=== PATIENT | male | born 1990 | race African-American/Black ===

== ENCOUNTER 2018-04-30 13:56 | Emergency (ER) | payer SELFPAY ==
--- NOTE | 2018-04-30 15:19 | EDPHYS ---
Physician Documentation [facility] Name: Blas Leger Jr Age: 28 yrs Sex: Male : 1990 Arrival Date: 04/30/2018 Time: 13:58 Bed Treatment Private MD: None, None ED Physician Kris Flood HPI: 04/30 15:16 This 28 yrs old Black Male presents to ER via Ambulatory with complaints of Bee Sting. jr8 15:16 by a wasp. Onset: The symptoms/episode began/occurred acutely, today. Associated signs jr8 and symptoms: Pertinent positives: swelling at site, tenderness. Severity of symptoms: At their worst the symptoms were mild, in the emergency department the symptoms are unchanged. The patient has not experienced similar symptoms in the past. The patient has not recently seen a physician. Historical: - Allergies: 14:13 Wasps; aj - Home Meds: 14:13 None [Active]; aj - PMHx: 14:13 None; aj - PSHx: 14:13 None; aj - Immunization history:: Last tetanus immunization: unknown. - Social history:: Smoking status: Patient/guardian denies using tobacco. - Ebola Screening: : Patient negative for fever greater than or equal to 101.5 degrees Fahrenheit, and additional compatible Ebola Virus Disease symptoms Patient denies exposure to infectious person Patient denies travel to an Ebola-affected area in the 21 days before illness onset No symptoms or risks identified at this time. ROS: 15:16 Eyes: Negative for injury, pain, redness, and discharge, ENT: Negative for injury, jr8 pain, and discharge, Neck: Negative for injury, pain, and swelling, Cardiovascular: Negative for chest pain, palpitations, and edema, Respiratory: Negative for shortness of breath, cough, wheezing, and pleuritic chest pain, Abdomen/GI: Negative for abdominal pain, nausea, vomiting, diarrhea, and constipation, Back: Negative for injury and pain, MS/Extremity: Negative for injury and deformity, Neuro: Negative for headache, weakness, numbness, tingling, and seizure. 15:16 Skin: Positive for swelling, of the right hand. Exam: 15:16 Head/Face: Normocephalic, atraumatic. Eyes: Pupils equal round and reactive to light, jr8 extra-ocular motions intact. Lids and lashes normal. Conjunctiva and sclera are non-icteric and not injected. Cornea within normal limits. Periorbital areas with no swelling, redness, or edema. ENT: Nares patent. No nasal discharge, no septal abnormalities noted. Tympanic membranes are normal and external auditory canals are clear. Oropharynx with no redness, swelling, or masses, exudates, or evidence of obstruction, uvula midline. Mucous membranes moist. Neck: Trachea midline, no thyromegaly or masses palpated, and no cervical lymphadenopathy. Supple, full range of motion without nuchal rigidity, or vertebral point tenderness. No Meningismus. Cardiovascular: Regular rate and rhythm with a normal S1 and S2. No gallops, murmurs, or rubs. Normal PMI, no JVD. No pulse deficits. Respiratory: Lungs have equal breath sounds bilaterally, clear to auscultation and percussion. No rales, rhonchi or wheezes noted. No increased work of breathing, no retractions or nasal flaring. Abdomen/GI: Soft, non-tender, with normal bowel sounds. No distension or tympany. No guarding or rebound. No evidence of tenderness throughout. Back: No spinal tenderness. No costovertebral tenderness. Full range of motion. MS/ Extremity: Pulses equal, no cyanosis. Neurovascular intact. Full, normal range of motion. Neuro: Awake and alert, GCS 15, oriented to person, place, time, and situation. Cranial nerves II-XII grossly intact. Motor strength 5/5 in all extremities. Sensory grossly intact. Cerebellar exam normal. Normal gait. 15:16 Skin: Localized swelling to right hand. Within center has stinger trell. No other diffuse urticaria or other lesions noted . Vital Signs: 14:13 BP 105 / 75; Pulse 84; Resp 18; Temp 98.8; Pulse Ox 100% on R/A; Weight 95.25 kg; aj Height 6 ft. 2 in. (187.96 cm); 14:13 Body Mass Index 26.96 (95.25 kg, 187.96 cm) aj MDM: 14:33 Patient medically screened. jr8 15:16 Data reviewed: vital signs, nurses notes, and as a result, I will discharge patient. jr8 Data interpreted: Pulse oximetry: on room air is 100 %. Interpretation: normal. Counseling: I had a detailed discussion with the patient and/or guardian regarding: the historical points, exam findings, and any diagnostic results supporting the discharge/admit diagnosis, the need for outpatient follow up, a family practitioner, to return to the emergency department if symptoms worsen or persist or if there are any questions or concerns that arise at home. Administered Medications: No medications were administered Disposition: 17:51 Co-signature as Attending Physician, Kris Flood MD. Disposition: 04/30/18 15:18 Discharged to Home. Impression: Toxic effect of venom of wasps, accidental (unintentional). - Condition is Stable. - Discharge Instructions: Bee, Wasp, or Hornet Sting, Adult. - Medication Reconciliation Form, Thank You Letter, Antibiotic Education, Prescription Opioid Use form. - Follow up: Private Physician; When: As needed; Reason: Recheck today's complaints, Continuance of care, Re-evaluation by your physician. - Problem is new. - Symptoms have improved. Signatures: Mirlande Garnett RN RN aj Calderon, Audri, RN RN aa5 Jon Reed PA PA jr8 Kris Flood MD MD Corrections: (The following items were deleted from the chart) 15:32 15:18 04/30/2018 15:18 Discharged to Home. Impression: Toxic effect of venom of wasps, aa5 accidental (unintentional). Condition is Stable. Forms are Medication Reconciliation Form, Thank You Letter, Antibiotic Education, Prescription Opioid Use. Follow up: Private Physician; When: As needed; Reason: Recheck today's complaints, Continuance of care, Re-evaluation by your physician. Problem is new. Symptoms have improved. jr8
--- NOTE | 2018-04-30 15:19 | ER ---
Nurse's Notes [facility] Name: Blas Leger Jr Age: 28 yrs Sex: Male : 1990 Arrival Date: 04/30/2018 Time: 13:58 Bed Treatment Private MD: None, None Diagnosis: Toxic effect of venom of wasps, accidental (unintentional) Presentation: 04/30 14:12 Presenting complaint: Patient states: Stung by wasp on right hand 30 min [employer]. Airway is aj patent with no inflammation to mouth or tongue, no difficulty speaking. Transition of care: patient was not received from another setting of care. Onset: The symptoms/episode began/occurred acutely. Anaphylaxis evaluation, no signs or symptoms of anaphylaxis were noted. Onset of symptoms was April 30, 2018. Risk Assessment: Do you want to hurt yourself or someone else? Patient reports no desire to harm self or others. Initial Sepsis Screen: Does the patient meet any 2 criteria? No. Patient's initial sepsis screen is negative. Does the patient have a suspected source of infection? No. Patient's initial sepsis screen is negative. Care prior to arrival: None. 14:12 Method Of Arrival: Ambulatory 14:12 Acuity: AILYN 4 aj Triage Assessment: 14:13 General: Appears in no apparent distress. comfortable, Behavior is calm, cooperative, aj appropriate for age. Pain: Complains of pain in right hand. Neuro: Level of Consciousness is awake, alert, obeys commands, Oriented to person, place, time, situation, Appropriate for age. Respiratory: Airway is patent Respiratory effort is even, unlabored, Respiratory pattern is regular, symmetrical. Derm: Skin is intact, is healthy with good turgor, Skin is pink, warm \T\ dry. normal. Injury Description: Bite sustained to right hand caused by a wasp, is from insect was sustained 30-60 minutes ago. Historical: - Allergies: 14:13 Wasps; aj - Home Meds: 14:13 None [Active]; aj - PMHx: 14:13 None; aj - PSHx: 14:13 None; aj - Immunization history:: Last tetanus immunization: unknown. - Social history:: Smoking status: Patient/guardian denies using tobacco. - Ebola Screening: : Patient negative for fever greater than or equal to 101.5 degrees Fahrenheit, and additional compatible Ebola Virus Disease symptoms Patient denies exposure to infectious person Patient denies travel to an Ebola-affected area in the 21 days before illness onset No symptoms or risks identified at this time. Screenin:48 Abuse screen: Denies threats or abuse. Nutritional screening: No deficits noted. aa5 Tuberculosis screening: No symptoms or risk factors identified. Fall Risk None identified. Assessment: 14:47 General: Appears comfortable, Behavior is calm, cooperative. Pain: Complains of pain in aa5 right hand Pain does not radiate. Pain currently is 8 out of 10 on a pain scale. Quality of pain is described as stinging, Is continuous. Neuro: Level of Consciousness is awake, alert, obeys commands, Oriented to person, place, time, situation. Cardiovascular: Heart tones S1 S2 present Rhythm is regular. Respiratory: Airway is patent Respiratory effort is even, unlabored, Respiratory pattern is regular, symmetrical. GI: No signs and/or symptoms were reported involving the gastrointestinal system. : No signs and/or symptoms were reported regarding the genitourinary system. EENT: No signs and/or symptoms were reported regarding the EENT system. Derm: Skin is dry, Skin is normal, Skin temperature is warm Swelling and mild redness noted to dorsum of right hand. Musculoskeletal: Range of motion: intact in all extremities. 14:47 Respiratory: Breath sounds are clear bilaterally. aa5 15:30 Neuro: Level of Consciousness is awake, alert, obeys commands, Oriented to person, aa5 place, time, situation. Respiratory: Airway is patent Respiratory effort is even, unlabored, Respiratory pattern is regular, symmetrical. Derm: Skin is dry, Skin is normal, Skin temperature is warm. Vital Signs: 14:13 BP 105 / 75; Pulse 84; Resp 18; Temp 98.8; Pulse Ox 100% on R/A; Weight 95.25 kg; aj Height 6 ft. 2 in. (187.96 cm); 14:13 Body Mass Index 26.96 (95.25 kg, 187.96 cm) aj ED Course: 13:58 Patient arrived in ED. mr 13:59 None, None is Private Physician. mr 14:13 Triage completed. aj 14:13 Arm band placed on left wrist. Patient placed in waiting room. Ice pack applied. aj 14:33 Fanny Ríos, RN is Primary Nurse. aa5 14:33 [facility]. jr8 14:33 Kris Flood MD is Attending Physician. jr8 14:48 Patient has correct armband on for positive identification. Bed in low position. Call aa5 light in reach. Side rails up X 1. 15:30 Patient did not have IV access during this emergency room visit. aa5 15:30 No provider procedures requiring assistance completed. aa5 Administered Medications: No medications were administered Outcome: 15:18 Discharge ordered by MD. jr8 15:30 Discharged to home ambulatory, with significant other. aa5 15:30 Condition: stable 15:30 Discharge instructions given to patient, Instructed on discharge instructions, follow up and referral plans. Demonstrated understanding of instructions, follow-up care. 15:32 Patient left the ED. aa5 Signatures: Mirlande Garnett, RN RN Sandrita Hutton Audri RN RN aa5 Jon Reed PA PA jr Corrections: (The following items were deleted from the chart) 15:41 14:47 Derm: Skin is pink, warm \T\ dry. Swelling and mild redness noted to dorsum of aa5 right hand aa5
== END 2018-04-30 15:32 | disposition home or self-care (01) ==
LOC: ER 13:56
DX: T63.461A Toxic effect of venom of wasps, accidental (unintentional), initial encounter (principal); Y92.9 Unspecified place or not applicable
CPT/HCPCS: 99281

== ENCOUNTER 2023-02-06 22:09 | Emergency (ER) | payer OTHER, SELFPAY ==
--- OUTSIDE RECORDS SUMMARY | 2023-02-06 22:12 | XMS REPORT | Continuity of Care Document ---
:1990 Author Organization [facility] t Address [address] [place] [address] [address] [place] [address] Care Team Providers Name Role Phone Pcp, Patient Does Not Have A Primary Care Physician [id number] TRACEE MAHONEY Attending Clinician Unavailable Tracee Mahoney DO Attending Clinician NESHA GEORGE Attending Clinician Unavailable Nesha Fernandez Attending Clinician Doctor Unassigned, [place] Attending Clinician Unavailable CORINA CARDENAS Attending Clinician Unavailable Corina Cardenas DO Attending Clinician MD FREDIS Attending Clinician Unavailable Payers Payer Name Policy Type Policy Number Effective Date Expiration Date S [employer] COMM[employer]CIAL [id number] 2021 NON-CONTRACT 00:00:00 GENERIC Problems Condition Condition Condition Status Onset Resolution Last Treating Co mments Source Name Details Category Date Date Treatment Clinician Date No known No known Disease Unive rs active active ity of problems problems [facility] Right-side Right-side Problem Active U T d chest d chest Physici wall pain wall pain ans Allergies, Adverse Reactions, Alerts Allergy Allergy Status Severity Reaction(s) Onset Inactive Treating Comm ents Source Name Type Date Date Clinician NO KNOWN Drug Active Univers ALLERGIE Class ity of S [facility] Social History Social Habit Start Date Stop Date Quantity Comments Source Exposure to Not sure [facility] SARS-CoV-2 (event) Medica l Branch Sex Assigned At [birth year] [facility] [place] 00:[facility]:00 00:00:00 Medical Branch Smoking Status Start Date Stop Date Source Tobacco smoking consumption [facility] Medical unknown Branch Occasional tobacco smoker [facility] (finding) Medications Ordered Filled Start Stop Current Ordering Indication Dosage Frequency Signature Comments Components Source Medication Medication Date Date Medication? Clinician (SIG) Name Name ibuprofen 2022- No 600mg 600 mg, Uni vers (IBU) 12-13 Oral, ity of tablet 600 20:30: 20:37 ONCE, 1 [place] mg 00 :00 dose, On Medical [place] 12/13/22 at 1530, RANJAN diazePAM 2022- No 5mg 5 mg, Univers (VALIUM) 12-13 Oral, ity of tablet 5 mg 20:30: 20:37 [place] 1 [place], On Medical [place] 12/13/22 at 1530, RANJAN dexamethaso 2022- No 10mg 10 mg, Uni vers ne sod phos 12-13 Oral, ity of PF 20:30: 20:37 ONCE, 1 [place] injection 00 :00 dose, On Medica l 10 mg [place] Branch 12/13/22 at 1530, 1 mL cyclobenzap Yes [id number] 10mg Take 1 Univers rine 10 mg 6-11 tablet by ity of tablet 00:00: mouth 3 [place] 00 (three) Medical times Branch daily as needed for Muscle Spasms. sulfamethox 2021-07 Yes [id number] 1{tbl} Take 1 Univers azole-trime 0-25 tablet by ity of thoprim 00:00: mouth [place] 800-160 mg 00 every 12 Medic al per tablet (twelve) Branc h hours. mupirocin 2 2021-07 Yes [id number] Apply to Univers % ointment 0-25 area(s) 3 ity of 00:00: (three) [place] 00 times Medical daily. Branch sulfamethox 2021-07 Yes [id number] 1{tbl} Take 1 Univers azole-trime 0-25 tablet by ity of thoprim 00:00: mouth [place] 800-160 mg 00 every 12 Medic al per tablet (twelve) Branc h hours. mupirocin 2 2021-07 Yes [id number] Apply to Univers % ointment 0-25 area(s) 3 ity of 00:00: (three) [place] 00 times Medical daily. Branch acetaminoph 2021- No 1000mg 1,000 mg, Univers en 1-07 01-06 Oral, ity of (TYLENOL) 01:00: 23:56 ONCE, 1 [place] tablet 00 :00 dose, On Medical 1,000 mg [place] 07/10/21 Branc h at 1900, RANJAN chlorphenir Yes [id number] 4mg Take 1 Univers amine 4 mg 1-06 tablet by ity of tablet 00:00: mouth [place] 00 every 6 Medical (six) Branch hours as needed for Allergies or Runny nose. calcium/mag 0 Yes [id number] 1{each} Take 1 Univers nesium/zinc 1-06 Each by ity o f (CALCIUM-MA 00:00: mouth [place] GNESUIUM-ZI 00 daily. Medica l NC) Branch 333-133-5 mg Tab benzonatate 0 Yes [id number] 100mg Take 1 Univers 100 mg 1-06 capsule by ity of capsule 00:00: mouth 3 [place] 00 (three) Medical times Branch daily as needed for Cough. ondansetron Yes [id number] 4mg Take 1 Univers 4 mg 1-06 tablet by ity of disintegrat 00:00: mouth [place] ing tablet 00 every 8 Medica l (eight) Branch hours as needed for Nausea and Vomiting (N/V). chlorphenir 0 Yes [id number] 4mg Take 1 Univers amine 4 mg 1-06 tablet by ity of tablet 00:00: mouth [place] 00 every 6 Medical (six) Branch hours as needed for Allergies or Runny nose. calcium/mag 2021-0 Yes [id number] 1{each} Take 1 Univers nesium/zinc 1-06 Each by ity o f (CALCIUM-MA 00:00: mouth [place] GNESUIUM-ZI 00 daily. Medica l NC) Branch 333-133-5 mg Tab benzonatate 2021-0 Yes [id number] 100mg Take 1 Univers 100 mg 1-06 capsule by ity of capsule 00:00: mouth 3 [place] 00 (three) Medical times Branch daily as needed for Cough. ondansetron 2022-0 Yes [id number] 4mg Take 1 Univers 4 mg 1-06 tablet by ity of disintegrat 00:00: mouth [place] ing tablet 00 every 8 Medica l (eight) Branch hours as needed for Nausea and Vomiting (N/V). chlorphenir 2022-0 Yes [id number] 4mg Take 1 Univers amine 4 mg 1-06 tablet by ity of tablet 00:00: mouth [place] 00 every 6 Medical (six) Branch hours as needed for Allergies or Runny nose. calcium/mag 2022-0 Yes [id number] 1{each} Take 1 Univers nesium/zinc 1-06 Each by ity o f (CALCIUM-MA 00:00: mouth [place] GNESUIUM-ZI 00 daily. Medica l NC) Branch 333-133-5 mg Tab benzonatate 2-0 Yes [id number] 100mg Take 1 Univers 100 mg 1-06 capsule by ity of capsule 00:00: mouth 3 [place] 00 (three) Medical times Branch daily as needed for Cough. ondansetron 2-0 Yes [id number] 4mg Take 1 Univers 4 mg 1-06 tablet by ity of disintegrat 00:00: mouth [place] ing tablet 00 every 8 Medica l (eight) Branch hours as needed for Nausea and Vomiting (N/V). chlorphenir 2-0 Yes [id number] 4mg Take 1 Univers amine 4 mg 1-06 tablet by ity of tablet 00:00: mouth [place] 00 every 6 Medical (six) Branch hours as needed for Allergies or Runny nose. calcium/mag 2022-0 Yes [id number] 1{each} Take 1 Univers nesium/zinc 1-06 Each by ity o f (CALCIUM-MA 00:00: mouth [place] GNESUIUM-ZI 00 daily. Medica l NC) Branch 333-133-5 mg Tab benzonatate 2022-0 Yes [id number] 100mg Take 1 Univers 100 mg 1-06 capsule by ity of capsule 00:00: mouth 3 [place] 00 (three) Medical times Branch daily as needed for Cough. ondansetron 2022-0 Yes [id number] 4mg Take 1 Univers 4 mg 1-06 tablet by ity of disintegrat 00:00: mouth [place] ing tablet 00 every 8 Medica l (eight) Branch hours as needed for Nausea and Vomiting (N/V). vitamin 2021- No [id number] 1{tbl} Take 1 Univers D3-folic 07-10 tablet by ity o f acid 125 00:00: 05:59 mouth [place] mcg (5,000 00 :00 daily for Medi huey unit)-1 mg 30 days. Branc h Tab ondansetron 2021- No 4mg Take 1 Uni vers 4 mg 5-10 07-10 tablet by ity of disintegrat 00:00: 00:00 [place] tablet 00 :00 every 8 Medica l (eight) Branch hours as needed for Nausea and Vomiting (N/V). traMADOL Yes 50mg Take 1 Univers (ULTRAM) 50 5-06 tablet by ity of mg tablet 00:00: mouth [place] 00 every 6 Medical (six) Branch hours as needed for Pain (scale 4-6). traMADOL 2016-0 Yes 50mg Take 1 Univers (ULTRAM) 50 5-06 tablet by ity of mg tablet 00:00: mouth [place] 00 every 6 Medical (six) Branch hours as needed for Pain (scale 4-6). traMADOL 2016-0 Yes 50mg Take 1 Univers (ULTRAM) 50 5-06 tablet by ity of mg tablet 00:00: mouth [place] 00 every 6 Medical (six) Branch hours as needed for Pain (scale 4-6). traMADOL 2016-0 Yes 50mg Take 1 Univers (ULTRAM) 50 5-06 tablet by ity of mg tablet 00:00: mouth [place] 00 every 6 Medical (six) Branch hours as needed for Pain (scale 4-6). Vital Signs Vital Name Observation Time Observation Value Comments Source Systolic blood 2022-12-13 19:49:00 121 mm[Hg[facility] 2022-12-13 19:49:00 76 mm[Hg] [facility] Heart rate 2022-12-13 19:49:00 85 /min [facility] Body temperature 2022-12-13 19:49:00 37.17 Roxanna [facility] Res[facility] rate 2022-12-13 19:49:00 18 /min [facility] Body weight 2022-12-13 19:49:00 104.327 kg [facility] [place] [facility] BMI 2022-12-13 19:49:00 29.53 kg/m2 [facility] [place] [facility] Oxygen saturation in 2022-12-13 19:49:00 99 /min University of Arterial blood by [facility] huey Pulse oximetry Branch Systolic blood 2022-04-28 23:19:00 126 mm[Hg] Univer sity of pressure [place] [facility] Diastolic blood 2022-04-28 23:19:00 82 mm[Hg] Unive rsity of pressure [place] [facility] Heart rate 2022-04-28 23:19:00 95 /min [facility] [place] [facility] Body temperature 2022-04-28 23:19:00 37.11 Roxanna [facility] [place] [facility] Respiratory rate 2022-04-28 23:19:00 16 /min [facility] [place] [facility] Body weight 2022-04-28 23:19:00 104.327 kg [facility] [place] [facility] BMI 2022-04-28 23:19:00 29.53 kg/m2 [facility] [place] [facility] Oxygen saturation in 2022-04-28 23:19:00 97 /min University of Arterial blood by [facility] Pulse oximetry Branch Heart rate 2021-07-10 23:51:00 100 /min [facility] [place] [facility] Body temperature 2021-07-10 23:51:00 39.56 Roxanna [facility] [place] [facility] Respiratory rate 2021-07-10 23:51:00 18 /min [facility] [place] [facility] Body weight 2021-07-10 23:51:00 104.327 kg [facility] [place] [facility] BMI 2021-07-10 23:51:00 29.53 kg/m2 [facility] [place] [facility] Oxygen saturation in 2021-07-10 23:51:00 100 /min University of Arterial blood by [facility] huey Pulse oximetry Branch Systolic blood 2021-07-10 23:51:00 118 mm[Hg] Univer sity of pressure [place] [facility] Diastolic blood 2021-07-10 23:51:00 55 mm[Hg] Unive rsity of pressure [place] [facility] Systolic blood 2020-03-15 10:49:00 143 mm[Hg] [facility] pressure Diastolic blood 2020-03-15 10:49:00 89 mm[Hg] [facility] pressure Body height 2020-03-15 10:49:00 73 [in_us] [facility] Body temperature 2020-03-15 10:49:00 97.3 [degF] [facility] Heart Rate 2020-03-15 10:49:00 57 /min [facility] BP Systolic 2019-04-24 14:37:00 111 mm[Hg] [facility] BP Diastolic 2019-04-24 14:37:00 80 mm[Hg] [facility] Height 2019-04-24 14:37:00 73 [in_us] [facility] Weight 2019-04-24 14:37:00 203 [lb_av] [facility] Body Mass Index 2019-04-24 14:37:00 26.78 kg/m2 [facility] Calculated Temperature 2019-04-24 14:37:00 98.1 [degF] [facility] Heart Rate 2019-04-24 14:37:00 70 /min [facility] Procedures Procedure Date / Time Performed Performing Clinician Sour e NOTICE OF PRIVACY 2022-12-13 20:02:42 Doctor Unassigned, No [facility] CONSENT/REFUSAL FOR 2022-12-13 19:47:55 Doctor Unassigned, No [facility] [place] DI[facility]NOSIS AND Name Medical Branch TREATMENT ASSIGNMENT OF BENEFITS 2022-04-29 00:10:19 Doctor Unassigned, No [facility] Medical Branch CONSENT/REFUSAL FOR 2022-04-28 23:14:03 Doctor Unassigned, No [facility] [place] DIAGNOSIS AND Name Medical Branch TREATMENT NOTICE OF PRIVACY 2021-07-10 23:48:48 Doctor Unassigned, No Univ ersity [facility] Name Medical Branch CONSENT/REFUSAL FOR 2021-07-10 23:48:26 Doctor Unassigned, No [facility] [place] DIAGNOSIS AND Name Medical Branch TREATMENT Encounters Start End Encounter Admission Attending Care Care Encounter Source Date/Time Date/Time Type Type Clinicians Facility Department ID 2022-12-13 2022-12-13 Emergency X MARU [facility] ERT [id number] Univers 14:50:00 15:50:00 TRACEE davenport [facility] 2022-12-13 2022-12-13 Emergency [facility] [id number] Univers 14:50:00 15:50:00 Tracee Desi GELACIO [id number] [facility] [id number] [facility] [id number] [address] 2022-10-20 2022-10-20 Outpatient [facility] [id number] [place] 13:52:06 13:52:06 [id number] [address] [place] 2022-04-28 2022-04-28 Emergency [facility] [id number] Univers 18:20:00 19:22:00 NESHA issac [facility] 2022-04-28 2022-04-28 [facility] [id number] Univers 18:20:00 19:22:00 Nesha Brice GELACIO [id number] i ty of [place] [address] [place] [id number] 2022-04-28 2022-04-28 Orders Doctor JENY [id number] Univers 00:00:00 00:00:00 Only Unassigned, RUSS [id number] ity of [place] [facility] [id number] [place] [facility] [id number] [address] 2021-07-10 2021-07-10 Emergency X [facility] ERT [id number] Univers 17:54:00 18:35:00 CORINA davenport [facility] 2021-07-10 2021-07-10 Emergency [facility] [id number] Univers 17:54:00 18:35:00 Corina BRIZUELA [id number] i ty of [place] [id number] [place] [id number] 2020-03-15 2020-03-15 Appointmen TRAUMACLINI [facility] [id number] [place] 09:15:00 09:15:00 bienvenido Mederos MD Surgery - Phys [facility] TRAUMACLIN Nancy CHERY MD [facility] 2019-04-24 2019-04-24 [facility] [id number] [place] 13:00:00 13:00:00 t; MD Rosa M Surgery - Phys ici TRAUMACLIN Nancy CHERY MD [facility] 2019-03-24 2019-03-24 [facility] [id number] [place] 10:15:00 10:15:00 t; MD Rosa M Physic i TRAUMACLIN bethany CHERY MD 2019-03-10 2019-03-10 [facility] [id number] [place] 10:45:00 10:45:00 t; MD Rosa M Physic i TRAUMACLIN bethany CHERY MD Results This patient has no known results.
[2023-02-06] MEDS ORDERED: TDAP (DIPHTH,PERTUSS(ACELL),TET VAC) 0.5 ML VIAL IMVAC ONE (22:45)
[2023-02-06] MEDS ORDERED: AMOX/K CLAV 875 MG TAB ONE (23:29)
--- NOTE | 2023-02-06 23:50 | EDPHYS ---
Physician Documentation [facility] Name: Blas Leger Jr Age: 33 yrs Sex: Male : 1990 Arrival Date: 02/06/2023 Time: 22:09 Bed 12 Private MD: ED Physician Julian Weeks HPI: 02/06 22:26 This 33 yrs old Black Male presents to ER via Ambulatory with complaints of Hand sb4 Swelling. 22:26 The patient or guardian reports a bite, by a dog. Onset: The symptoms/episode sb4 began/occurred 1 week(s) ago. The patient has not recently seen a physician. 22:34 patient states he was trying to break up a fight between his dog and the neighbor's dog sb4 when he was bitten by his own dog on his right wrist/hand and left forearm. he did not initially seek treatment. his right hand has slowly become more swollen and painful. Historical: - Allergies: 22:20 Wasps; bp - Home Meds: 22:20 None [Active]; bp - PMHx: 22:20 None; bp - Immunization history:: Adult Immunizations up to date, Last tetanus immunization: unknown. - Social history:: Smoking status: unknown. ROS: 22:33 Constitutional: Negative for fever, chills, and weight loss, Eyes: Negative for injury, sb4 pain, redness, and discharge. 22:33 MS/extremity: Positive for injury or acute deformity, bite, erythema, swelling, tenderness, of the right hand. 22:34 All other systems are negative. sb4 Exam: 22:34 Constitutional: This is a well developed, well nourished patient who is awake, alert, sb4 and in no acute distress. Head/Face: Normocephalic, atraumatic. Cardiovascular: Regular rate and rhythm with a normal S1 and S2. Respiratory: Lungs have equal breath sounds bilaterally, clear to auscultation and percussion. No rales, rhonchi or wheezes noted. No increased work of breathing, no retractions or nasal flaring. Skin: Warm, dry with normal turgor. Normal color with no rashes, no lesions, and no evidence of cellulitis. 22:34 Musculoskeletal/extremity: Extremities: ROM: intact in all extremities, Circulation is intact in all extremities. Sensation intact. 22:34 Skin: cellulitis, that is minimal, on the dorsum of right hand. Vital Signs: 22:19 BP 109 / 74; Pulse 87; Resp 16; Temp 97.7; Pulse Ox 100% ; Weight 97.52 kg; Height 6 bp ft. 2 in. ; 02/07 00:00 BP 115 / 76; Pulse 80; Resp 16; Pulse Ox 100% on R/A; pf1 02/06 22:19 Body Mass Index 27.60 (97.52 kg, 187.96 cm) bp MDM: 02/06 22:12 Patient medically screened. sb4 23:33 Differential diagnosis: dislocation, open fracture, closed fracture, contusion, sb4 abrasion, tendonitis, cellulitus, compartment syndrome. Data reviewed: vital signs, nurses notes, radiologic studies, plain films, and as a result, I will discharge patient. Independent interpretation of the following test(s) in the Emergency Department X-Ray: My interpretation is my interpretation of the hand xray images are no acute fracture,dislocation, or foreign body present. Test considered but Not performed: Labs: not indicated, vitals stable, nontoxic appearing. Counseling: I had a detailed discussion with the patient and/or guardian regarding: the historical points, exam findings, and any diagnostic results supporting the discharge/admit diagnosis, radiology results, to return to the emergency department if symptoms worsen or persist or if there are any questions or concerns that arise at home. 02/06 22:25 Order name: Hand Right 3 View XRAY sb4 Administered Medications: 22:37 Drug: Boostrix Tdap IM 0.5 ml Route: IM; Site: right deltoid; pf1 23:23 Follow up: Response: No adverse reaction; Marked relief of symptoms pf1 23:20 Drug: Amoxicillin-Clavulanate PO 875 mg Route: PO; pf1 02/07 00:00 Follow up: Response: No adverse reaction pf1 Disposition: 02:40 Co-signature as Attending Physician, Julian Weeks MD I agree with the assessment sp4 and plan of care. I reviewed the patient's care provided by the Advanced Practice Provider and agree with the diagnosis and treatment plan. Disposition Summary: 02/06/23 23:50 Discharge Ordered Location: Home sb4 Problem: an acute exacerbation sb4 Symptoms: are unchanged sb4 Condition: Stable sb4 Diagnosis - Bitten by dog sb4 - Cellulitis of right upper limb sb4 Followup: sb4 - With: - When: As needed - Reason: Recheck today's complaints, Continuance of care, Re-evaluation by your physician Discharge Instructions: - Discharge Summary Sheet sb4 - Animal Bite, Adult, Rriw-on-Iugh sb4 - Cellulitis, Adult sb4 Forms: - Work release form eb - Medication Reconciliation Form sb4 - Thank You Letter sb4 - Antibiotic Education sb4 - Prescription Opioid Use sb4 - Patient Portal Instructions sb4 Prescriptions: - Flagyl 500 mg Oral Tablet - take 1 tablet by ORAL route every 12 hours for 7 days; 14 tablet; Refills: 0, sb4 Product Selection Permitted - Bactrim DS 800-160 mg Oral Tablet - take 1 tablet by ORAL route every 12 hours for 7 days; 14 tablet; Refills: 0, sb4 Product Selection Permitted Signatures: Dispatcher [employer] Doyle Coe RN RN bp Brown, Sophia, PA-C PA-C sb4 Wendy Maynard RN RN pf1 Julian Weeks MD MD sp4
--- NOTE | 2023-02-06 23:50 | ER ---
Nurse's Notes [facility] Name: Blas Leger Jr Age: 33 yrs Sex: Male : 1990 Arrival Date: 02/06/2023 Time: 22:09 Bed 12 Private MD: Diagnosis: Bitten by dog;Cellulitis of right upper limb Presentation: 02/06 22:19 Chief complaint: Patient states: R HAND SWELLING/REDNESS x3 DAYS, UNTREATED DOG BITE TO bp AREA x1 WK AGO. Coronavirus screen: At this time, the client does not indicate any symptoms associated with coronavirus-19. Ebola Screen: No symptoms or risks identified at this time. Initial Sepsis Screen: Does the patient meet any 2 criteria? No. Patient's initial sepsis screen is negative. Does the patient have a suspected source of infection? No. Patient's initial sepsis screen is negative. Risk Assessment: Do you want to hurt yourself or someone else? Patient reports no desire to harm self or others. Onset of symptoms is unknown. 22:19 Method Of Arrival: Ambulatory bp 22:19 Acuity: AILYN 4 bp Triage Assessment: 22:20 General: Appears in no apparent distress. Behavior is calm, cooperative, appropriate bp for age. Pain: Complains of pain in right hand. EENT: No deficits noted. Neuro: No deficits noted. Cardiovascular: No deficits noted. Respiratory: No deficits noted. GI: No signs and/or symptoms were reported involving the gastrointestinal system. : No signs and/or symptoms were reported regarding the genitourinary system. Derm: No deficits noted. Musculoskeletal: Swelling present in right hand. Historical: - Allergies: 22:20 Wasps; bp - Home Meds: 22:20 None [Active]; bp - PMHx: 22:20 None; bp - Immunization history:: Adult Immunizations up to date, Last tetanus immunization: unknown. - Social history:: Smoking status: unknown. Screenin:38 [facility] ED Fall Risk Assessment (Adult) History of falling in the last 3 months, pf1 including since admission No falls in past 3 months (0 pts) Confusion or Disorientation No (0 pts) Intoxicated or Sedated No (0 pts) Impaired Gait No (0 pts) Mobility Assist Device Used No (0 pt) Altered Elimination No (0 pt) Score/Fall Risk Level 0 - 2 = Low Risk Oriented to surroundings, Maintained a safe environment, Educated pt \T\ family on fall prevention, incl call for assistance when getting out of bed, Assessed \T\ reinforced patient's understanding of fall precautions, Provided non-skid footwear, Hourly rounding (assess needs \T\ fall precautionary measures) done, Used ambulatory aids as needed (educated on \T\ assisted with), Used gait belt as appropriate. Abuse screen: Denies threats or abuse. Nutritional screening: No deficits noted. Tuberculosis screening: No symptoms or risk factors identified. Assessment: 22:34 General: Notified Sarmad RUSHING of dog bite. . pf1 Vital Signs: 22:19 BP 109 / 74; Pulse 87; Resp 16; Temp 97.7; Pulse Ox 100% ; Weight 97.52 kg; Height 6 bp ft. 2 in. ; 02/07 00:00 BP 115 / 76; Pulse 80; Resp 16; Pulse Ox 100% on R/A; pf1 02/06 22:19 Body Mass Index 27.60 (97.52 kg, 187.96 cm) bp ED Course: 02/06 22:12 Patient arrived in ED. mr 22:12 Mary Sandoval PA-C is PHCP. sb4 22:12 Julian Weeks MD is Attending Physician. sb4 22:20 Triage completed. bp 22:20 Arm band placed on. bp 22:20 Patient has correct armband on for positive identification. Bed in low position. Call pf1 light in reach. 22:41 Hand Right 3 View XRAY In Process Unspecified. EDMS 23:50 Garrett Lira MD is Referral Physician. sb4 02/07 00:00 Provided Education on: prescriptions administration. pf1 00:00 No provider procedures requiring assistance completed. Patient did not have IV access pf1 during this emergency room visit. Administered Medications: 02/06 22:37 Drug: Boostrix Tdap IM 0.5 ml Route: IM; Site: right deltoid; pf1 23:23 Follow up: Response: No adverse reaction; Marked relief of symptoms pf1 23:20 Drug: Amoxicillin-Clavulanate PO 875 mg Route: PO; pf1 02/07 00:00 Follow up: Response: No adverse reaction pf1 Medication: 02/06 22:37 Vaccine Information Statement (VIS) provided today. Questions and/or concerns pf1 addressed. VIS edition date: February 07, 2021. Outcome: 23:50 Discharge ordered by MD. arevalo 02/07 00:00 Discharged to home ambulatory. pf1 00:00 Condition: stable pf1 00:00 Discharge instructions given to patient, Instructed on discharge instructions, follow up and referral plans. Demonstrated understanding of instructions, follow-up care, medications, Prescriptions given X 2. 00:07 Patient left the ED. pf1 Signatures: Dispatcher [employer] SHARDAMO Sandrita Mauro Brian, RN RN Mary Beckett PA-C PA-C [email or web address] Wendy Maynard RN RN pf1 Corrections: (The following items were deleted from the chart) 02/06 22:37 22:35 Boostrix Tdap IM 0.5 ml IM in right deltoid pf1 pf1
[2023-02-07 00:32] VITALS: TEMP 97.7; O2SAT 100
[2023-02-07 00:33] VITALS: BP 115/76
--- NOTE | 2023-02-08 10:42 | RAD REPORT ---
EXAM DESCRIPTION: RAD - Hand Right 3 View - 02/06/2023 10:39 pm CLINICAL HISTORY: 33 years Male ANIMAL BITE TECHNIQUE: 3 views of the right hand are provided. COMPARISON: No prior exams provided for comparison. FINDINGS: There is mild soft tissue swelling over the dorsum of the metacarpals without acute right hand fracture, dislocation, or foreign body. No visualized soft tissue gas. Visualized joint spaces a re preserved. No aggressive osseous lesion. IMPRESSION: Mild dorsal soft tissue swelling without soft tissue gas, foreign body, or acute fractur e. Electronically signed by: Kalani Siegel MD 02/07/2023 12:24 AM CDT Due to temporary technical issues with the PACS/Fluency reporting system, reports are being signed by the in house radiologist without review as a courtesy to ensure prompt reporting. The interpreting r adiologist is fully responsible for the content of the report.
== END 2023-02-07 00:07 | disposition home or self-care (01) ==
LOC: ER 22:09
DX: L03.113 Cellulitis of right upper limb (principal); W54.0XXA Bitten by dog, initial encounter
CPT/HCPCS: 96372; 99284

== ENCOUNTER 2023-03-17 14:18 | Emergency (ER) | payer SELFPAY ==
--- NOTE | 2023-03-17 14:28 | ER ---
Nurse's Notes [facility] Name: Blas Leger Jr Age: 33 yrs Sex: Male : 1990 Arrival Date: 03/17/2023 Time: 14:18 Bed Waiting Private MD: Diagnosis: Epidermal cyst Presentation: 03/17 14:22 Chief complaint: Patient states: he is having swelling in his right wrist, again. ap3 Coronavirus screen: At this time, the client does not indicate any symptoms associated with coronavirus-19. Ebola Screen: No symptoms or risks identified at this time. Initial Sepsis Screen: Does the patient meet any 2 criteria? No. Patient's initial sepsis screen is negative. Does the patient have a suspected source of infection? No. Patient's initial sepsis screen is negative. Risk Assessment: Do you want to hurt yourself or someone else? Patient reports no desire to harm self or others. Onset of symptoms is unknown. 14:22 Method Of Arrival: Ambulatory ap3 14:22 Acuity: AILYN 5 ap3 Triage Assessment: 14:24 General: Appears in no apparent distress. Behavior is calm, cooperative, appropriate ap3 for age. Pain: Denies pain. Neuro: Level of Consciousness is awake, alert, obeys commands, Oriented to person, place, time, situation, Appropriate for age. Cardiovascular: Patient's skin is warm and dry. Respiratory: Airway is patent Respiratory effort is even, unlabored. Derm:. Musculoskeletal: Swelling present in dorsum of right hand. Historical: - Allergies: 14:23 Wasps; ap3 - Home Meds: 14:23 None [Active]; ap3 - PMHx: 14:23 None; ap3 - Immunization history:: Client reports having NOT received the Covid vaccine. - Social history:: Smoking status: Patient reports the use of cigarette tobacco products, smokes one-half pack cigarettes per day. Screenin:25 [facility] ED Fall Risk Assessment (Adult) History of falling in the last 3 months, ap3 including since admission No falls in past 3 months (0 pts). Abuse screen: Denies threats or abuse. Nutritional screening: No deficits noted. Tuberculosis screening: No symptoms or risk factors identified. Vital Signs: 14:25 Temp 98.6; Weight 97.52 kg; Height 6 ft. 1 in. ; ap3 14:25 Body Mass Index 28.37 (97.52 kg, 185.42 cm) ap3 ED Course: 14:20 Patient arrived in ED. rg4 14:21 Varsha Lima FNP-C is [facility]. kb 14:21 Allan Maldonado MD is Attending Physician. kb 14:23 Triage completed. ap3 14:25 Arm band placed on left wrist. ap3 14:26 Patient has correct armband on for positive identification. Adult w/ patient. Provided ap3 Education on: follow up instructions. 14:26 No provider procedures requiring assistance completed. Patient did not have IV access ap3 during this emergency room visit. Administered Medications: No medications were administered Medication: 14:26 VIS not applicable for this client. ap3 Outcome: 14:27 Discharge ordered by . kb 14:33 Discharged to home ambulatory, with family. ap3 14:33 Condition: good 14:33 Discharge instructions given to patient, Instructed on discharge instructions, follow up and referral plans. medication usage, Demonstrated understanding of instructions, follow-up care, medications, Prescriptions given X 1. 14:34 Patient left the ED. ap3 Signatures: Varsha Lima FNP-C FNP-Denita Aaron rg4 Mirlande Gipson, RN RN ap3
--- NOTE | 2023-03-17 14:28 | EDPHYS ---
Physician Documentation [facility] Name: Blas Leger Jr Age: 33 yrs Sex: Male : 1990 Arrival Date: 03/17/2023 Time: 14:18 Bed Waiting Private MD: ED Physician Allan Maldonado HPI: 03/17 14:34 This 33 yrs old Black Male presents to ER via Ambulatory with complaints of Hand kb Swelling. 14:34 The patient or guardian reports swelling, tenderness. The complaints affect the dorsum kb of right hand. Context: The problem was sustained at home, resulted from an unknown cause. Onset: The symptoms/episode began/occurred yesterday. Modifying factors: The symptoms are alleviated by nothing, the symptoms are aggravated by nothing. Associated signs and symptoms: The patient has no apparent associated signs or symptoms. Severity of symptoms: At their worst the symptoms were moderate, in the emergency department the symptoms are unchanged. The patient has experienced a previous episode. The patient has not recently seen a physician. pt reports swelling to right hand/wrist that started yesterday. states this has happened before and antibiotics cleared it up. Historical: - Allergies: 14:23 Wasps; ap3 - Home Meds: 14:23 None [Active]; ap3 - PMHx: 14:23 None; ap3 - Immunization history:: Client reports having NOT received the Covid vaccine. - Social history:: Smoking status: Patient reports the use of cigarette tobacco products, smokes one-half pack cigarettes per day. ROS: 14:26 Constitutional: Negative for fever, chills, and weight loss. kb 14:26 Skin: Positive for swelling, of the dorsum of right hand. 14:26 All other systems are negative. Exam: 14:26 Constitutional: This is a well developed, well nourished patient who is awake, alert, kb and in no acute distress. Head/Face: Normocephalic, atraumatic. ENT: Moist Mucous membranes Cardiovascular: Regular rate Respiratory: Respirations even and unlabored. No increased work of breathing. Talking in full sentences MS/ Extremity: Pulses equal, no cyanosis. Neurovascular intact. Full, normal range of motion. Neuro: Awake and alert, GCS 15, oriented to person, place, time, and situation. Moves all extremities. Normal gait. 14:26 Skin: epidermal cyst to palmar aspect of right hand/wrist. Vital Signs: 14:25 Temp 98.6; Weight 97.52 kg; Height 6 ft. 1 in. ; ap3 14:25 Body Mass Index 28.37 (97.52 kg, 185.42 cm) ap3 MDM: 14:21 Patient medically screened. kb 14:26 Differential diagnosis: cellulitis, abscess, cyst. Data reviewed: vital signs, nurses kb notes. Counseling: I had a detailed discussion with the patient and/or guardian regarding the historical points, exam findings, and any diagnostic results supporting the discharge/admit diagnosis, the need for outpatient follow up, a general surgeon, to return to the emergency department if symptoms worsen or persist or if there are any questions or concerns that arise at home. Administered Medications: No medications were administered Disposition: 14:34 Co-signature as Attending Physician, Allan Maldonado MD I reviewed the patient's care rt provided by the Advanced Practice Provider and agree with the diagnosis and treatment plan. Disposition Summary: 03/17/23 14:27 Discharge Ordered Location: Home kb Condition: Stable kb Diagnosis - Epidermal cyst kb Followup: kb - With: Emergency Department - When: As needed - Reason: Worsening of condition Followup: kb - With: Private Physician - When: 2 - 3 days - Reason: Recheck today's complaints, Continuance of care, Re-evaluation by your physician Discharge Instructions: - Discharge Summary Sheet kb - Epidermoid Cyst Removal kb - Epidermoid Cyst, [id number] kb Forms: - Medication Reconciliation Form kb - Thank You Letter kb - Antibiotic Education kb - Prescription Opioid Use kb - Patient Portal Instructions kb - Leadership Thank You Letter kb Prescriptions: - Cephalexin 500 mg Oral Capsule - take 1 capsule by ORAL route every 8 hours for 10 days; 30 capsule; Refills: 0, kb Product Selection Permitted Signatures: Varsha Lima, Mirlande Salguero RN RN ap3 Allan Maldonado MD MD rt
--- OUTSIDE RECORDS SUMMARY | 2023-03-17 14:36 | XMS REPORT | Continuity of Care Document ---
:1990 Author Organization [facility] t Address [address] [place] [address] [place] [id number] Care Team Providers Name Role Phone Pcp, Patient Does Not Have A Primary Care Physician +[id number] TRACEE MAHONEY Attending Clinician Unavailable Tracee Mahoney DO Attending Clinician NESHA GEORGE Attending Clinician Unavailable Nesha Fernandez Attending Clinician Doctor Unassigned, [place] Attending Clinician Unavailable CORINA CARDENAS Attending Clinician Unavailable Corina Cardenas DO Attending Clinician MD FREDIS Attending Clinician Unavailable Payers Payer Name Policy Type Policy Number Effective Date Expiration Date S [employer]CIAL [id number] 2021 NON-CONTRACT 00:00:00 GENERIC Problems Condition Condition Condition Status Onset Resolution Last Treating Co mments Source Name Details Category Date Date Treatment Clinician Date No known No known Disease Unive rs active active ity of problems problems [facility] Right-side Right-side Problem Active U T d chest d chest Physici wall pain wall pain ans Allergies, Adverse Reactions, Alerts Allergy Allergy Status Severity Reaction(s) Onset Inactive Treating Comm ents Source Name Type Date Date Clinician NO KNOWN Drug Active Univers ALLERGIE Class ity of S [facility] Social History Social Habit Start Date Stop Date Quantity Comments Source Exposure to Not sure [facility] SARS-CoV-2 (event) Medica l Branch Sex Assigned At [birth year] [facility] [place] [facility]:00:[facility] 00:00:00 Medical Branch Smoking Status Start Date Stop Date Source Tobacco smoking consumption [facility] [place] Medical unknown Branch Occasional tobacco smoker [place] [...] 12/13/22 at 1530, 1 mL cyclobenzap Yes [id number] 10mg Take 1 Univers rine 10 mg 6-11 tablet by ity of tablet 00:00: mouth 3 [place] 00 (three) Medical times Branch daily as needed for Muscle Spasms. sulfamethox 2021-07 Yes [id number] 1{tbl} Take 1 Univers azole-trime 0-25 tablet by ity of thoprim 00:00: mouth [place] 800-160 mg 00 every 12 Medic al per tablet (twelve) Branc h hours. mupirocin 2 2021-07 Yes [id number] Apply to Univers % ointment 0-25 area(s) 3 ity of 00:00: (three) [place] 00 times Medical daily. Branch sulfamethox 2021-07 Yes [id number] 1{tbl} Take 1 Univers azole-trime 0-25 tablet by ity of thoprim 00:00: mouth [place] 800-160 mg 00 every 12 Medic al per tablet (twelve) Branc h hours. mupirocin 2 2021-07 Yes [id number] Apply to Univers % ointment 0-25 area(s) 3 ity of 00:00: (three) [place] 00 times Medical daily. Branch acetaminoph 2021- No 1000mg 1,000 mg, Univers en 1-07 01-06 Oral, ity of (TYLENOL) 01:00: 23:56 ONCE, 1 [place] tablet [place] :00 dose, On Medical 1,000 mg [place] 07/10/21 Branc h at 1900, RANJAN chlorphenir Yes [id number] 4mg Take 1 Univers amine 4 mg 1-06 tablet by ity of tablet 00:00: mouth [place] 00 every 6 Medical (six) Branch hours as needed for Allergies or Runny nose. calcium/mag 0 Yes [id number] 1{each} Take 1 Univers nesium/zinc 1-06 Each by ity o f (CALCIUM-MA 00:00: mouth [place] GNESUIUM-ZI 00 daily. Medica l NC) Branch 333-133-5 mg Tab benzonatate Yes [id number] 100mg Take 1 Univers 100 mg 1-06 capsule by ity of capsule 00:00: mouth 3 [place] 00 (three) Medical times Branch daily as needed for Cough. ondansetron Yes [id number] 4mg Take 1 Univers 4 mg 1-06 tablet by ity of disintegrat 00:00: mouth [place] ing tablet 00 every 8 Medica l (eight) Branch hours as needed for Nausea and Vomiting (N/V). chlorphenir Yes [id number] 4mg Take 1 Univers amine 4 mg 1-06 tablet by ity of tablet 00:00: mouth [place] 00 every 6 Medical (six) Branch hours as needed for Allergies or Runny nose. calcium/mag 2021-0 Yes [id number] 1{each} Take 1 Univers nesium/zinc 1-06 Each by ity o f (CALCIUM-MA 00:00: mouth [place] GNESUIUM-ZI 00 daily. Medica l [place]) Branch 333-133-5 mg Tab benzonatate 2021-0 Yes [id number] 100mg Take 1 Univers 100 mg 1-06 capsule by ity of capsule 00:00: mouth 3 [place] 00 (three) Medical times Branch daily as needed for Cough. ondansetron 2022-0 Yes [id number] 4mg Take 1 Univers 4 mg 1-06 tablet by ity of disintegrat 00:00: mouth [place] ing tablet 00 every 8 Medica l (eight) Branch hours as needed for Nausea and Vomiting (N/V). chlorphenir 2022-0 Yes [id number] 4mg Take 1 Univers amine 4 mg 1-06 tablet by ity of tablet 00:00: mouth [place] 00 every 6 Medical (six) Branch hours as needed for Allergies or Runny nose. calcium/mag 2022-0 Yes [id number] 1{each} Take 1 Univers nesium/zinc 1-06 Each by ity o f (CALCIUM-MA 00:00: mouth [place] GNESUIUM-ZI 00 daily. Medica l [place]) Branch 333-133-5 mg Tab benzonatate 2-0 Yes [id number] 100mg Take 1 Univers 100 mg 1-06 capsule by ity of capsule 00:00: mouth 3 [place] 00 (three) Medical times Branch daily as needed for Cough. ondansetron 2-0 Yes [id number] 4mg Take 1 Univers 4 mg 1-06 tablet by ity of disintegrat 00:00: mouth [place] ing tablet 00 every 8 Medica l (eight) Branch hours as needed for Nausea and Vomiting (N/V). chlorphenir 2022-0 Yes [id number] 4mg Take 1 Univers amine 4 mg 1-06 tablet by ity of tablet 00:00: mouth [place] 00 every 6 Medical (six) Branch hours as needed for Allergies or Runny nose. calcium/mag 2022-0 Yes [id number] 1{each} Take 1 Univers nesium/zinc 1-06 Each by ity o f (CALCIUM-MA 00:00: mouth [place] GNESUIUM-ZI 00 daily. Medica l [place]) Branch 333-133-5 mg Tab benzonatate 2022-0 Yes [id number] 100mg Take 1 Univers 100 mg 1-06 capsule by ity of capsule 00:00: mouth 3 [place] 00 (three) Medical times Branch daily as needed for Cough. ondansetron 2022-0 Yes [id number] 4mg Take 1 Univers 4 mg 1-06 tablet by ity of disintegrat 00:00: mouth [place] ing tablet 00 every 8 Medica l (eight) Branch hours as needed for Nausea and Vomiting (N/V). vitamin 2021- No [id number] 1{tbl} Take 1 Univers D3-folic 07-10 tablet [...] Source Systolic blood 2022-12-13 19:49:00 121 [facility] 2022-12-13 19:49:00 76 mm[facility]Hg[facility] Heart rate 2022-12-13 19:49:00 85 /min [facility] Body temperature 2022-12-13 19:49:00 37.17 Roxanna [facility] Respiratory rate 2022-12-13 19:49:00 18 /min [facility] Body weight 2022-12-13 19:49:00 104.327 kg [facility] [place] [facility] BMI 2022-12-13 19:49:00 29.53 kg/m2 [facility] [place] [facility] Oxygen saturation in 2022-12-13 19:49:00 99 /min University of Arterial blood by [facility] huey Pulse oximetry Branch Systolic blood 2022-04-28 23:19:00 126 mm[Hg] Univer [facility]ity [facility] [place] [facility] Diastolic blood 2022-04-28 23:19:00 82 mm[Hg] Unive rsity [facility] [place] [facility] Heart rate 2022-04-28 23:19:00 95 /min [facility] [place] [facility] Body temperature 2022-04-28 23:19:00 37.11 Roxanna [facility] [place] [facility] Respiratory rate 2022-04-28 23:19:00 16 /min [facility] [place] [facility] Body weight 2022-04-28 23:19:00 104.327 kg [facility] [place] [facility] BMI 2022-04-28 23:19:00 29.53 kg/m2 [facility] [place] [facility] Oxygen saturation in 2022-04-28 23:19:00 97 /min University of Arterial blood by [facility] Pulse oximetry Branch Heart rate 2021-07-10 23:51:00 100 /min [facility] [place] [facility] Body temperature 2021-07-10 23:51:00 39.56 Roxanna [facility] [place] [facility] Respiratory rate 2021-07-10 23:51:00 18 /min [facility] [place] [facility] Body weight 2021-07-10 23:51:00 104.327 kg [facility] [place] [facility] BMI 2021-07-10 23:51:00 29.53 kg/m2 [facility] [place] [facility] Oxygen saturation in 2021-07-10 23:51:00 100 /min University of Arterial blood by [facility] huey Pulse oximetry Branch Systolic blood 2021-07-10 23:51:00 118 mm[Hg] [facility] [place] [facility] Diastolic blood 2021-07-10 23:51:00 55 mm[Hg] Unive rsity [facility] [place] [facility] Systolic blood 2020-03-15 10:49:00 143 [...] PRIVACY 2022-12-13 20:02:42 Doctor Unassigned, No [facility] Medical Branch CONSENT/REFUSAL FOR 2022-12-13 19:47:55 Doctor Unassigned, No [facility] [place] DIAGNOSIS AND Name Medical Branch TREATMENT ASSIGNMENT OF BENEFITS 2022-04-29 00:10:19 Doctor Unassigned, No [facility] Name Medical Branch CONSENT/REFUSAL FOR 2022-04-28 23:14:03 Doctor Unassigned, No [facility] [place] DIAGNOSIS AND Name Medical Branch TREATMENT NOTICE OF PRIVACY 2021-07-10 23:48:48 Doctor Unassigned, No Univ ersity [facility] Name Medical Branch CONSENT/REFUSAL FOR 2021-07-10 23:48:26 Doctor Unassigned, No [facility] [place] DIAGNOSIS AND Name Medical Branch TREATMENT Encounters Start End Encounter Admission Attending Care Care Encounter Source Date/Time Date/Time Type Type Clinicians Facility Department ID 2022-12-13 2022-12-13 Emergency X [facility] ERT [id number] Univers 14:50:00 15:50:00 TRACEE davenport [facility] 2022-12-13 2022-12-13 [facility] [id number] Univers 14:50:00 15:50:00 Tracee Weeks MICHMERRILL [id number] ity [facility] [id number] [facility] [id number] [address] 2022-10-20 2022-10-20 [id number] [place] 13:52:06 13:52:06 0418 F [place] 2022-04-28 2022-04-28 [facility] [id number] Univers 18:20:00 19:22:00 NESHA davenport [facility] 2022-04-28 2022-04-28 [facility] [id number] Univers 18:20:00 19:22:00 Nesha Brice GELACIO [id number] i ty of [place] [address] [place] [id number] 2022-04-28 2022-04-28 Orders Doctor JENY [id number] Univers 00:00:00 00:00:00 Only Unassigned, RUSS [id number] ity of [place] [facility] [id number] [facility] [id number] [address] 2021-07-10 2021-07-10 Emergency X [facility] ERT [id number] Univers 17:54:00 18:35:00 CORINA davenport [facility] 2021-07-10 2021-07-10 Emergency [facility] [id number] Univers 17:54:00 18:35:00 Corina BRIZUELA [id number] i ty of [place] [id number] [facility] [id number] [address] 2020-03-15 2020-03-15 Appointmen TRAUMACLINI [facility] [id number] [place] 09:15:00 09:15:00 bienvenido Mederos MD Surgery - Phys [facility] TRAUMAKARLA CHERY MD [facility] 2019-04-24 2019-04[facility] [id number] [place] 13:00:00 13:00:00 t; MD Rosa M Surgery - Phys [facility] Nancy CHERY MD [facility] 2019-03-24 2019-03-24 [facility] [id number] [place] 10:15:00 10:15:00 t; MD Rosa M Physic i TRAUMACLMALINDA CHERY MD 2019-03-10 2019-03-10 [facility] [id number] [place] 10:45:00 10:45:00 t; MD Rosa M Physic i TRAUMACLMALINDA CHERY MD Results This patient has no known results.
[2023-03-17 14:39] VITALS: TEMP 98.6
== END 2023-03-17 14:34 | disposition home or self-care (01) ==
LOC: ER 14:18
DX: L72.0 Epidermal cyst (principal)
CPT/HCPCS: 99283

== ENCOUNTER 2024-07-31 16:07 | Emergency (ER) | payer SELFPAY ==
--- NOTE | 2024-07-31 17:02 | RAD REPORT ---
EXAMINATION: Shoulder Right 2+ Views CLINICAL INDICATION: Male, 34 years old. PAIN RIGHT COMPARISON: No prior exam. FINDINGS: No acute fracture. Question deformity at the right lateral fourth rib which may be overlapping anatom y. A nondisplaced rib fracture could appear similar but no history of trauma was provided. No malalignment/dislocation. No significant focal degenerative change. Other: n/a IMPRESSION: No acute osseous abnormality. See above regarding the right fourth rib.
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
[2024-07-31] MEDS ORDERED: IBUPROFEN 400 MG TAB ONE (19:28)
[2024-08-01 02:40] VITALS: BP 121/82; TEMP 98.8; O2SAT 98
--- OUTSIDE RECORDS SUMMARY | 2024-08-02 01:51 | XMS REPORT | Continuity of Care Document ---
Author Name Unknown Address [address] [facility] [address] [place] [address] [facility] thconnect Address [address] [facility]. [address] [place] [address] Care Team Providers Care Insurance Account Executive Name Role Phone PCP, PATIENT DOES NOT HAVE A Primary Care Physic missy Unavailable Sanjuana DECKER Attending Clinician Unavailable Sanjuana Burns Attending Clinician [phone] Pedro Gomez Attending Clinician [phone] PEDRO GARDINER Attending Clinician Unavailable TRACEE MAHONEY Attending Clinician Unavailab Tracee Rodriguez DO Attending Clinician [phone] NESHA GEORGE Attending Clinician Unavailable Nesha Fernandez Attending Clinician [phone] Doctor Unassigned, [place] Attending Clinician U CORINA Fair Attending Clinician Unavailable Corina Cardenas DO Attending Clinician [phone] MD FREDIS Attending Clinician Unavailable PEDRO GARDINER Admitting Clinician Unavailable Payers Payer Name Policy Type Policy Number Effective Date Expirati on Date Source [employer] 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 [id number] 2021 00:00:00 Problems Condition Name Condition Details Condition Category Status Onset Date Resolution Date Last Treatment Date Treating Clinician Comments Source No known active problems No known active problems Disease [facility] Right-side d chest wall pain Right-side d chest wall pain Problem Active [facility] Allergies, Adverse Reactions, Alerts Allergy Name Allergy Type Status Severity Reaction(s) Onset Date Inactive Date Treating Clinician Comments Source Iodine Propensi ty to adverse reaction s Active Swelling 03-20 00:00: 00 [facility] IODINE DRUG INGREDI Active Swelling 03-20 00:00: 00 [facility] NO KNOWN ALLERGIE S Drug Class Active [facility] Social History Social Habit Start Date Stop Date Quantity Comments Source Gender identity [facility] Exposure to SARS-CoV-2 (event) Not sure [facility] Sex Assigned At 1990 00:00:00 1990 00:00:00 [facility] Smoking Status Start Date Stop Date Source Tobacco smoking consumption unknown [facility] Occasional tobacco smoker (finding) [facility] Medications Ordered Medication Name Filled Medication Name Start Date Stop Date Current Medication? Ordering Clinician Indication Dosage Frequency Signature (SIG) Comments Components Source ondansetron (ZOFRAN-ODT ) disintegrat ing tablet 4 mg 2022-07 22:45: 00 05-18 21:43 :00 No 4mg 4 mg, Oral, ONCE, 1 dose, On Wed05/18/23 at 1645, Routine [facility] benzonatate 200 mg capsule 2022-07 00:00: 00 Yes [id number] 200mg Take 1 capsule by mouth 3 (three) times daily as needed for Cough for up to 20 doses. [facility] ondansetron 4 mg disintegrat ing tablet 2022-07 00:00: 00 Yes [id number] 4mg Take 1 tablet by mouth every 8 (eight) hours as needed for Nausea and Vomiting (N/V). [facility] HYDROcodone -acetaminop hen (NORCO 5) 5-325 mg tablet 1 tablet 03-21 01:15: 00 03-21 01:22 :00 No 1{tbl} 1 tablet, Oral, ONCE, 1 dose, On Wed03/20/23 at 2015, [facility] ibuprofen 800 mg tablet 03-20 00:00: 00 Yes [id number] 800mg Take 1 tablet by mouth every 8 (eight) hours as needed for Pain (scale 4-6). [facility] traMADoL 50 mg tablet 03-20 00:00: 00 03-28 04:59 :00 No [id number] 50mg Take 1 tablet by mouth every 8 (eight) hours as needed for Pain (scale 4-6) for up to 7 days. Indication s: acute pain [facility] ibuprofen (IBU) tablet 600 mg 12-13 20:30: 00 12-13 20:37 :00 No 600mg 600 mg, Oral, ONCE, 1 dose, On 12/13/22 at 1530, [facility] diazePAM (VALIUM) tablet 5 mg 12-13 20:30: 00 12-13 20:37 :00 No 5mg 5 mg, Oral, ONCE, 1 dose, On 12/13/22 at 1530, [facility] dexamethaso ne sod phos PF injection 10 mg 12-13 20:30: 00 12-13 20:37 :00 No 10mg 10 mg, Oral, ONCE, 1 dose, On 12/13/22 at 1530, 1 mL [facility] cyclobenzap rine 10 mg tablet 12-13 00:00: 00 Yes [id number] 10mg Take 1 tablet by mouth 3 (three) times daily as needed for Muscle Spasms. [facility] mupirocin 2 % ointment 2021-07 00:00: 00 Yes [id number] Apply to area(s) 3 (three) times daily. [facility] sulfamethox azole-trime thoprim 800-160 mg per tablet 2021-07 00:00: 00 Yes [id number] 1{tbl} Take 1 tablet by mouth every 12 (twelve) hours. [facility] acetaminoph en (TYLENOL) tablet 1,000 mg 07-11 01:00: 00 07-10 23:56 :00 No 1000mg 1,000 mg, Oral, ONCE, 1 dose, On Luna 07/10/21 at 1900, [facility] chlorphenir amine 4 mg tablet 07-10 00:00: 00 Yes [id number] 4mg Take 1 tablet by mouth every 6 (six) hours as needed for Allergies or Runny nose. [facility] calcium/mag nesium/zinc (CALCIUM-MA GNESUIUM-ZI NC) 333-133-5 mg Tab 07-10 00:00: 00 Yes [id number] 1{each} Take 1 Each by mouth daily. [facility] benzonatate 100 mg capsule 07-10 00:00: 00 Yes [id number] 100mg Take 1 capsule by mouth 3 (three) times daily as needed for Cough. [facility] ondansetron 4 mg disintegrat ing tablet 07-10 00:00: 00 Yes [id number] 4mg Take 1 tablet by mouth every 8 (eight) hours as needed for Nausea and Vomiting (N/V). [facility] calcium/mag nesium/zinc (CALCIUM-MA GNESUIUM-ZI NC) 333-133-5 mg Tab 07-10 00:00: 00 Yes [id number] 1{each} Take 1 Each by mouth daily. [facility] vitamin D3-folic acid 125 mcg (5,000 unit)-1 mg Tab 07-10 00:00: 00 08-10 05:59 :00 No [id number] 1{tbl} Take 1 tablet by mouth daily for 30 days. [facility] ondansetron 4 mg disintegrat ing tablet 11-11 00:00: 00 07-10 00:00 :00 No 4mg Take 1 tablet by mouth every 8 (eight) hours as needed for Nausea and Vomiting (N/V). [facility] traMADOL (ULTRAM) 50 mg tablet 11-07 00:00: 00 Yes 50mg Take 1 tablet by mouth every 6 (six) hours as needed for Pain (scale 4-6). [facility] Vital Signs Vital Name Observation Time Observation Value Comments S sisi Systolic blood pressure 2023-05-18 21:36:00 111 mm[Hg] [facility] Diastolic blood pressure 2023-05-18 21:36:00 77 mm[Hg] [facility] Heart rate 2023-05-18 21:36:00 86 [facility] 2023-05-18 21:36:00 37.39 [facility] Respiratory rate 2023-05-18 21:36:00 18 /min [facility] Body height 2023-05-18 21:36:00 188 cm [facility] Body weight 2023-05-18 21:36:00 102.059 kg [facility] BMI 2023-05-18 21:36:00 28.89 kg/m2 [facility] Oxygen saturation in Arterial blood by Pulse oximetry 2023-05-18 21:36:00 98 /min [facility] Systolic blood pressure 2023-03-30 16:31:00 129 mm[Hg] [facility] Diastolic blood pressure 2023-03-30 16:31:00 91 mm[Hg] [facility] Heart rate 2023-03-30 16:31:00 74 /min [facility] Body temperature 2023-03-30 16:31:00 36.89 [facility] Respiratory rate 2023-03-30 16:31:00 16 /min [facility] Oxygen saturation in Arterial blood by Pulse oximetry 2023-03-30 16:31:00 100 /min [facility] Systolic blood pressure 2023-03-21 03:10:00 133 mm[Hg] [facility] Diastolic blood pressure 2023-03-21 03:10:00 77 mm[Hg] [facility] Heart rate 2023-03-21 03:10:00 70 /min [facility] Body temperature 2023-03-21 03:10:00 37.17 Roxanna [facility] Respiratory rate 2023-03-21 03:10:00 16 /min [facility] Oxygen saturation in Arterial blood by Pulse oximetry 2023-03-21 03:10:00 99 /min [facility] Body height 2023-03-21 01:04:00 185.4 cm [facility] Body weight 2023-03-21 01:04:00 97.523 kg [facility] BMI 2023-03-21 01:04:00 28.37 kg/m2 [facility] Systolic blood pressure 2022-12-13 19:49:00 121 mm[Hg] [facility] Diastolic blood pressure 2022-12-13 19:49:00 76 mm[Hg] [facility] Heart rate 2022-12-13 19:49:00 85 /min [facility] Body temperature 2022-12-13 19:49:00 37.17 Roxanna [facility] Respiratory rate 2022-12-13 19:49:00 18 /min [facility] Body weight 2022-12-13 19:49:00 104.327 kg [facility] BMI 2022-12-13 19:49:00 29.53 kg/m2 [facility] Oxygen saturation in Arterial blood by Pulse oximetry 2022-12-13 19:49:00 99 /min [facility] Systolic blood pressure 2022-04-28 23:19:00 126 mm[Hg] [facility] Diastolic blood pressure 2022-04-28 23:19:00 82 mm[Hg] [facility] Heart rate 2022-04-28 23:19:00 95 /min [facility] Body temperature 2022-04-28 23:19:00 37.11 Roxanna [facility] Respiratory rate 2022-04-28 23:19:00 16 /min [facility] Body weight 2022-04-28 23:19:00 104.327 kg [facility] BMI 2022-04-28 23:19:00 29.53 kg/m2 [facility] Oxygen saturation in Arterial blood by Pulse oximetry 2022-04-28 23:19:00 97 /min [facility] Systolic blood pressure 2021-07-10 23:51:00 118 mm[Hg] [facility] Diastolic blood pressure 2021-07-10 23:51:00 55 mm[Hg] [facility] Heart rate 2021-07-10 23:51:00 100 /min [facility] Body temperature 2021-07-10 23:51:00 39.56 Roxanna [facility] Respiratory rate 2021-07-10 23:51:00 18 /min [facility] Body weight 2021-07-10 23:51:00 104.327 kg [facility] BMI 2021-07-10 23:51:00 29.53 kg/m2 [facility] Oxygen saturation in Arterial blood by Pulse oximetry 2021-07-10 23:51:00 100 /min [facility] Systolic blood pressure 2020-03-15 10:49:00 143 mm[Hg] [facility] Diastolic blood pressure 2020-03-15 10:49:00 89 mm[Hg] [facility] Body height 2020-03-15 10:49:00 73 [in_us] [facility] Body temperature 2020-03-15 10:49:00 97.3 [degF] [facility] Heart Rate 2020-03-15 10:49:00 57 /min [facility] BP Systolic 2019-04-24 14:37:00 111 mm[Hg] [facility] BP Diastolic 2019-04-24 14:37:00 80 mm[Hg] [facility] Height 2019-04-24 14:37:00 73 [in_us] [facility] Weight 2019-04-24 14:37:00 203 [lb_av] [facility] Body Mass Index Calculated 2019-04-24 14:37:00 26.78 kg/m2 [facility] Temperature 2019-04-24 14:37:00 98.1 [degF] [facility] Heart Rate 2019-04-24 14:37:00 70 /min [facility] Procedures Procedure Date / Time Performed Performing Clinician Source ASSIGNMENT OF BENEFITS 2023-05-18 22:27:35 Docto r Unassigned, [place] [facility] RAPID STREP SCREEN FOR GROUP A 2023-05-18 22:13:00 Sanjuana Decker [facility] RAPID INFLUENZA A/B 2023-05-18 22:11:00 Sanjuana Decker e [facility] COVID-19 (ID NOW RAPID TESTING) 2023-05-18 22:11:00 Sanjuana Decker [facility] CONSENT/REFUSAL FOR DIAGNOSIS AND TREATMENT 2023-05-18 21:15:20 Doctor Unassigned, [place] [facility] CONSENT/REFUSAL FOR DIAGNOSIS AND TREATMENT 2023-03-30 16:16:32 Doctor Unassigned, [place] [facility] URIC ACID 2023-03-21 01:26:00 Pedro Gardiner [facility] COMP. METABOLIC PANEL ([id number]) 2023-03-21 01:26:00 Pedro Gardiner [facility] SEDIMENTATION RATE 2023-03-21 01:26:00 [facility] CBC WITH DIFF 2023-03-21 01:26:00 Pedro Gardiner [facility] NOTICE OF PRIVACY PRACTICES 2023-03-21 00:54:52 Doctor Unassigned, [place] [facility] CONSENT/REFUSAL FOR DIAGNOSIS AND TREATMENT 2023-03-21 00:49:20 Doctor Unassigned, [place] [facility] NOTICE OF PRIVACY PRACTICES 2022-12-13 20:02:42 Doctor Unassigned, [place] [facility] CONSENT/REFUSAL FOR DIAGNOSIS AND TREATMENT 2022-12-13 19:47:55 Doctor Unassigned, [place] [facility] ASSIGNMENT OF BENEFITS 2022-04-29 00:10:19 Docto r Unassigned, [place] [facility] CONSENT/REFUSAL FOR DIAGNOSIS AND TREATMENT 2022-04-28 23:14:03 Doctor Unassigned, [place] [facility] NOTICE OF PRIVACY PRACTICES 2021-07-10 23:48:48 Doctor Unassigned, [place] [facility] CONSENT/REFUSAL FOR DIAGNOSIS AND TREATMENT 2021-07-10 23:48:26 Doctor Unassigned, [place] [facility] Encounters Start Date/Time End Date/Time Encounter Type Admission Type Attending [facility] Care Facility Care Department Encounter ID Source 2023-05-18 15:38:00 2023-05-18 17:22:00 Emergency X Sanjuana DECKER [facility] E[facility] [id number] [facility] 2023-05-18 15:38:00 2023-05-18 17:22:00 Emergency Sanjuana Decker [facility] [id number] 350.1.13.10 4.2.7.2.686 [id number] [facility] 2023-03-30 11:36:00 2023-03-30 13:00:00 Emergency X Sanjuana DECKER [facility] E[facility] [id number] [facility] 2023-03-30 11:36:00 2023-03-30 13:00:00 Emergency Sanjuana Decker [facility] [id number] 350.1.13.10 4.2.7.2.686 [id number] [facility] 2023-03-20 20:06:00 2023-03-20 22:23:00 Emergency Pedro Gardiner [facility] [id number] 350.1.13.10 4.2.7.2.686 [id number] [facility] 2023-03-20 20:06:00 2023-03-20 22:23:00 Emergency X PEDRO AGRDINER [facility] ERT [id number] [facility] 2022-12-13 14:50:00 2022-12-13 15:50:00 Emergency X MARU TRACEE [facility] ERT [id number] [facility] 2022-12-13 14:50:00 2022-12-13 15:50:00 Emergency Tracee Mahoney [facility] 1.2.840.114 350.1.13.10 4.2.7.2.686 [id number] [facility] 2022-10-20 13:52:06 2022-10-20 13:52:06 Outpatient [facility] [id number] Tylor Miranda 2022-04-28 18:20:00 2022-04-28 19:22:00 Emergency X NESHA GEORGE [facility] ERT [id number] [facility] 2022-04-28 18:20:00 2022-04-28 19:22:00 Emergency Nesha George [facility] [id number] 350.1.13.10 4.2.7.2.686 [id number] [facility] 2022-04-28 00:00:00 2022-04-28 00:00:00 Orders Only Doctor Unassigned, [place] [facility] [id number] 350.1.13.10 4.2.7.2.686 [id number] [facility] 2021-07-10 17:54:00 2021-07-10 18:35:00 Emergency X CORINA CARDENAS [facility] ERT [id number] [facility] 2021-07-10 17:54:00 2021-07-10 18:35:00 Emergency Corina Cardenas [facility] [id number] 350.1.13.10 4.2.7.2.686 [id number] [facility] 2020-03-15 09:15:00 2020-03-15 09:15:00 Appointmen t; MD DHRUV MCGINNIS MD [facility] [id number] [facility] 2019-04-24 13:00:00 2019-04-24 13:00:00 Appointmen t; MD DHRUV MCGINNIS MD [facility] [id number] [facility] 2019-03-24 10:15:00 2019-03-24 10:15:00 Appointmen t; MD DHRUV MCGINNIS MD [facility] [id number] [facility] 2019-03-10 10:45:00 2019-03-10 10:45:00 MD DHRUV Padilla MD [facility] [id number] [facility] Results Test Description Test Time Test Comments Results Result Co mments Source [id number] 02:11:40* Test Item Value Reference Range Interpretation Comme nts URIC ACID (test code = 5619650590) 5.9 mg/dL 3.6-8.0 Lab Interpretation (test cod e = 34852-0) Normal [facility] [id number] 02:07:58* Test Item Value Reference Range Interpretation Comme nts ESR (test code = 40504-6) 9 See_Comment [Automated message] The system which generated this result transmitted reference range: 0 - 10 mm/HR. The reference range was not used to interpret this result as normal/abnormal. Lab Interpretation (test code = 40692-1) Normal [facility] WITH [id number] 01:40:38* Test Item Value Reference Range Interpretation Comme nts WBC (test code = 6690-2) 8.34 See_Comment [Automated messa ge] The system which generated this result transmitted reference range: 4.20 - 10.70 10*3/?L. The reference range was not used to interpret this result as normal/abnormal. RBC (test code = 789-8) 4.68 See_Comment [Automated messa ge] The system which generated this result transmitted reference range: 4.26 - 5.52 10*6/?L. The reference range was not used to interpret this result as normal/abnormal. HGB (test code = 718-7) 14.8 g/dL 12.2-16.4 HCT (test code = 4544-3) 43.1 % 38.4-49.3 MCV (test code = 787-2) 92.1 fL 81.7-95.6 MCH (test code = 785-6) 31.6 pg 26.1-32.7 MCHC (test code = 786-4) 34.3 g/dL 31.2-35.0 RDW-SD (test code = 50380-5) 45.2 fL 38.5-51.6 RDW-CV (test code = 788-0) 13.3 % 12.1-15.4 PLT (test code = 777-3) 218 See_Comment [Automated messa ge] The system which generated this result transmitted reference range: 150 - 328 10*3/?L. The reference range was not used to interpret this result as normal/abnormal. MPV (test code = 87951-3) 10.3 fL 9.8-13.0 NRBC/100 WBC (test code = 1742551035) 0.0 See_Comment [Automated me ssage] The system which generated this result transmitted reference range: 0.0 - 10.0 /100 WBCs. The reference range was not used to interpret this result as normal/abnormal. NRBC x10^3 (test code = 6156153880) See_Comment [Automated me ssage] The system which generated this result transmitted reference range: 10*3/?L. The reference range was not used to interpret this result as normal/abnormal. GRAN MAT (NEUT) % (test code = 770-8) 62.7 % IMM GRAN % (test code = 3134050208) 0.20 % LYMPH % (test code = 736-9) 25.7 % MONO % (test code = 5905-5) 9.0 % EOS % (test code = 713-8) 1.8 % BASO % (test code = 706-2) 0.6 % GRAN MAT x10^3(ANC) (test code = 5127050275) 5.23 10*3/uL 1.99-6.95 IMM GRAN x10^3 (test code = 4726447177) 0.00-0.06 LYMPH x10^3 (test code = 731-0) 2.14 10*3/uL 1.09-3.23 MONO x10^3 (test code = 742-7) 0.75 10*3/uL 0.36-1.02 EOS x10^3 (test code = 711-2) 0.15 10*3/uL 0.06-0.53 BASO x10^3 (test code = 704-7) 0.05 10*3/uL 0.01-0.09 [facility]
== END 2024-07-31 19:53 | disposition home or self-care (01) ==
LOC: ER 16:07
DX: S46.011A Strain of muscle(s) and tendon(s) of the rotator cuff of right shoulder, initial encounter (principal); F17.210 Nicotine dependence, cigarettes, uncomplicated
CPT/HCPCS: 99283